=== PATIENT | male | born 1980 | race Caucasian/White ===

== ENCOUNTER 2018-06-30 01:54 | Emergency (ER) | payer SELFPAY ==
[2018-06-30 02:49] VITALS: BMI 25.0
[2018-06-30] MEDS ORDERED: Lidocaine 1% Inj (20ml) ONE (04:13)
--- NOTE | 2018-06-30 05:00 | ED PDOC ---
HPI: General Adult Time Seen by Provider: 06/30/18 02:56 Chief Complaint (Nursing): Abnormal Skin Integrity Chief Complaint (Provider): Left 5th digit injury History Per: Patient History/Exam Limitations: no limitations Onset/Duration Of Symptoms: Days Have you had recent travel within the past 21 days to any of the following countries: [place], [place], [place] or [place]?: No Current Symptoms Are (Timing): Still Present Additional Complaint(s): 38 yo male with no medical problems presents for evaluation of splinter in left 5th digit. Pt states he can feel both ends, through through. Tetanus UTD Past Medical History Reviewed: Historical Data, Nursing Documentation, Vital Signs Vital Signs: Last Vital Signs Temp 98.7 F 06/30/18 02:49 Pulse 87 06/30/18 02:49 Resp 18 06/30/18 02:49 BP 124/85 06/30/18 02:49 Pulse Ox 98 06/30/18 02:49 - Medical History PMH: No Chronic Diseases - Surgical History Surgical History: No Surg Hx - Family History Family History: States: No Known Family Hx - Living Arrangements Living Arrangements: With Family - Home Medications Home Medications: Ambulatory Orders Medication Instructions Recorded Cephalexin [Keflex] 500 mg PO BID #14 capsule 06/30/18 - Allergies Allergies/Adverse Reactions: Allergies Allergy/AdvReac Type Severity Reaction Status Date / Time No Known Allergies Allergy Verified 06/30/18 02:49 Review of Systems ROS Statement: Except As Marked, All Systems Reviewed And Found Negative Constitutional: Negative for: Fever, Chills Skin: Positive for: Other Physical Exam - Reviewed Nursing Documentation Reviewed: Yes Vital Signs Reviewed: Yes - Physical Exam Appears: Positive for: Well, Non-toxic, No Acute Distress Head Exam: Positive for: ATRAUMATIC, NORMAL INSPECTION, NORMOCEPHALIC Skin: Positive for: Warm. Negative for: Normal Color ((+) punctured wound with palpable FB, left medial 5th digit ) Eye Exam: Positive for: Normal appearance ENT: Positive for: Normal ENT Inspection Neck: Positive for: Normal Cardiovascular/Chest: Negative for: Bradycardia, Tachycardia Respiratory: Negative for: Accessory Muscle Use, Respiratory Distress Back: Positive for: Normal Inspection Extremity: Positive for: Normal ROM Neurologic/Psych: Positive for: Alert, Oriented, Gait - ECG O2 Sat by Pulse Oximetry: 98 Pulse Ox Interpretation: Normal Medical Decision Making Medical Decision Making: Surgical consult completed. FB removed by surgery. Disposition - Clinical Impression Clinical Impression: Foreign body (FB) in soft tissue - Disposition Disposition: Routine/Home Disposition Time: 04:56 Condition: GOOD Prescriptions: Cephalexin [Keflex] 500 mg PO BID #14 capsule Instructions: Foreign Body in Skin Forms: [facility] (Polish)
[2018-06-30 05:05] VITALS: BP 122/70; PULSE 76; RESP 16; TEMP 98.1
--- NOTE | 2018-06-30 13:36 | RAD ---
Date of service: 06/30/2018 PROCEDURE: Left small finger radiographs. HISTORY: FB COMPARISON: None. TECHNIQUE: AP radiograph of the left hand, as well as spot oblique and lateral images of left small finger were obtained. FINDINGS: LEFT SMALL FINGER: Left small finger normal, without fracture of focal lesion. Remainder of the left hand (as seen on the AP view) is grossly unremarkable. JOINTS: Normal. SOFT TISSUES: No radiopaque foreign body. OTHER FINDINGS: None. IMPRESSION: Normal left small finger radiographs.
[2018-07-01 02:24] VITALS: O2SAT 98
== END 2018-06-30 05:05 | disposition home or self-care (01) ==
LOC: H.ER 01:54
DX: M79.5 Residual foreign body in soft tissue (principal)